=== PATIENT | female | born 1990 | race Two or more races ===

== ENCOUNTER 2022-03-06 13:20 | Emergency (ER) | payer SELFPAY ==
[~2022-03-06] VITALS: Ht 156.2 cm; Wt 62.3 kg
[2022-03-06 13:53] LABS: URINE HCG NEGATIVE (NEG)
[2022-03-06 14:08] LABS: BASOPHILS # (AUTO) 0.1 X10'3 (0-0.2); BASOPHILS % (AUTO) 0.5 % (0-1); EOSINOPHILS # (AUTO) 0.3 X10'3 (0-0.9); EOSINOPHILS % (AUTO) 2.1 % (0-6); HEMATOCRIT 40.5 % (35.0-45.0); HEMOGLOBIN 13.3 g/dl (12.0-16.0); LYMPHOCYTES # (AUTO) 1.3 X10'3 (1.1-4.8); LYMPHOCYTES % (AUTO) 8.4 % (21-51); MEAN CORPUSCULAR HGB CONC 32.9 g/dL (33.0-36.5); MONOCYTES # (AUTO) 0.8 X10'3 (0-0.9); NEUTROPHILS # (AUTO) 12.9 X10'3 (1.8-7.7); PLATELET COUNT 393 X10'3 (140-440); RED CELL DISTRIBUTION WIDTH 13.5 % (11.5-14.5); WHITE BLOOD COUNT 15.3 X10'3 (4.5-11.0)
[2022-03-06 14:17] LABS: ALANINE AMINOTRANSFERASE 17 U/L (12-78); ALBUMIN 3.6 G/DL (3.4-5.0); ALBUMIN/GLOBULIN RATIO 0.9 (1.1-1.5); ALKALINE PHOSPHATASE 69 IU/L (46-116); ANION GAP 5 (8-16); ASPARTATE AMINO TRANSFERASE 15 U/L (10-37); BILIRUBIN,TOTAL 0.3 MG/DL (0.1-1.0); BLOOD UREA NITROGEN 5 MG/DL (7-18); BUN/CREATININE RATIO 7.6 (6.6-38.0); CALCIUM 8.7 MG/DL (8.5-10.1); CHLORIDE 104 MMOL/L (99-107); CREATININE 0.66 MG/DL (0.40-0.90); GLUCOSE 112 MG/DL (70-104); LIPASE 118 U/L (73-393); POTASSIUM 3.4 MMOL/L (3.5-5.1); SODIUM 138 MMOL/L (135-145); TOTAL CARBON DIOXIDE 29.5 MMOL/L (24-32); TOTAL PROTEIN 7.6 G/DL (6.4-8.2); eGFR > 90 ML/MIN
[2022-03-06 14:25] LABS: COLOR,URINE STRAW (Yellow); GLUCOSE, URINE NEGATIVE (Neg); KETONES,URINE NEGATIVE (Neg); LEUKOCYTE ESTERASE ,URINE SMALL (Neg); NITRITES, URINE NEGATIVE (Neg); OCCULT BLOOD,URINE LARGE (Neg); PROTEIN,URINE TRACE mg/dl (Neg); UROBILINOGEN,URINE 0.2 E.U/dL (0.2-1.0)
[2022-03-06 14:27] LABS: CLARITY,URINE SLIGHTLY CLOUDY (Clear); UA COLLECTION TYPE VOIDED
[2022-03-06 14:38] LABS: BACTERIA,URINE 1+ /HPF (Neg); MUCUS STRANDS NONE SEEN /LPF (Neg); SQUAMOUS EPITHELIAL CELL,UR FEW /LPF (FEW); WBC CLUMPS,URINE FEW /HPF (NEGATIVE)
--- NOTE | 2022-03-06 15:19 | NUR ---
pt states left side abdomen pain radiates to back. polyurina with pain no blood. resp even unlabored. skin w/d/i pink
--- NOTE | 2022-03-06 15:24 | NUR ---
per intreprter pt gets dizzy and nauseus from the pain also vomiting from pain. hx of asthma.
[2022-03-06] MEDS ORDERED: ondansetron/PF 4mg/2ml inj IV ONE (15:30)
[2022-03-06] MEDS ORDERED: morphine 4 MG/ML inj SYRINge IV ONE (15:30)
[2022-03-06] MEDS ORDERED: normal saline 1000ml 1,000 ML IV ONE (15:30)
[2022-03-06] MEDS ORDERED: CefTRIAXone/D5W-Rocephin 1gm 50 ML IV ONE (15:35)
[2022-03-06] MEDS ORDERED: ONDA4TAB12 PO (16:56)
[2022-03-06] MEDS ORDERED: CEPH-585 PO (16:56)
[2022-03-06] MEDS ORDERED: CEFD300C21 PO (16:59)
[2022-03-06 17:34] VITALS: BP 118/70
== END 2022-03-06 17:36 | disposition home or self-care (01) ==
LOC: ER 13:20
DX: N10 Acute pyelonephritis (principal); J45.909 Unspecified asthma, uncomplicated; Z79.899 Other long term (current) drug therapy; Z79.1 Long term (current) use of non-steroidal anti-inflammatories (NSAID)
CPT/HCPCS: 74176; 80053; 81001; 81025; 83690; 85025; 87077; 87088; 87186; 96365; 96375; 99285; J0696; J2270; J2405; J7030